=== PATIENT | female | born 1995 | race Caucasian/White ===

== ENCOUNTER → 2022-06-21 | Outpatient (CLI) | payer OTHER ==
[2022-06-21 17:43] LABS: HEMATOCRIT 37.2 % (36.0-47.0); HEMOGLOBIN 12.7 g/dl (12.0-15.5); MEAN CORPUSCULAR HEMOGLOBIN 31.4 pg (27.0-33.0); MEAN CORPUSCULAR HGB CONC 34.1 g/dl (32.0-36.5); MEAN CORPUSCULAR VOLUME 91.9 fl (80.0-96.0); PLATELET COUNT, AUTOMATED 237 10^3/uL (150-450); RED BLOOD COUNT 4.05 10^6/uL (4.00-5.40); WHITE BLOOD COUNT 10.4 10^3/uL (4.0-10.0)
[2022-06-21 20:04] LABS: HEPATITIS B SURFACE ANTIGEN NEGATIVE (NEGATIVE); HEPATITIS C VIRUS ABY INDEX < 0.0 INDEX (<0.8); HIV 1&2 SCREEN CENTAUR NEGATIVE (NEGATIVE)
== END ==
LOC: M PLALAB 15:37
PROVIDERS: ATTEND Advanced Practice Midwife
DX: Z34.01 Encounter for supervision of normal first pregnancy, first trimester (principal)

== ENCOUNTER → 2022-07-26 | Outpatient (CLI) | payer MEDICARE | LOC: M WHC 09:59 | PROVIDERS: ATTEND Advanced Practice Midwife | DX: Z34.02 Encounter for supervision of normal first pregnancy, second trimester (principal); Z3A.00 Weeks of gestation of pregnancy not specified; Z53.9 Procedure and treatment not carried out, unspecified reason ==

== ENCOUNTER → 2022-07-26 | Outpatient (CLI) | payer OTHER ==
[2022-07-26 16:57] LABS: GC DNA AMPLIFICATION NEGATIVE (NEGATIVE)
== END ==
LOC: M PLALAB 10:44
PROVIDERS: ATTEND Advanced Practice Midwife
DX: Z36.9 Encounter for antenatal screening, unspecified (principal)

== ENCOUNTER → 2022-08-30 | Outpatient (REF) | payer MEDICARE | LOC: M PLALAB 15:59 | PROVIDERS: ATTEND Advanced Practice Midwife | DX: Z34.02 Encounter for supervision of normal first pregnancy, second trimester (principal) ==

== ENCOUNTER → 2022-09-14 | Outpatient (CLI) | payer OTHER | LOC: M WHC 14:01 | PROVIDERS: ATTEND Advanced Practice Midwife | DX: Z34.02 Encounter for supervision of normal first pregnancy, second trimester (principal); Z3A.23 23 weeks gestation of pregnancy ==

== ENCOUNTER → 2022-09-28 | Outpatient (REF) | payer MEDICARE | LOC: M PLALAB 10:30 | PROVIDERS: ATTEND Advanced Practice Midwife | DX: Z34.02 Encounter for supervision of normal first pregnancy, second trimester (principal) ==

== ENCOUNTER → 2022-10-25 | Outpatient (CLI) | payer OTHER ==
[2022-10-25 14:21] LABS: HEMATOCRIT 35.3 % (36.0-47.0); HEMOGLOBIN 11.9 g/dl (12.0-15.5); MEAN CORPUSCULAR HEMOGLOBIN 32.2 pg (27.0-33.0); MEAN CORPUSCULAR HGB CONC 33.7 g/dl (32.0-36.5); MEAN CORPUSCULAR VOLUME 95.7 fl (80.0-96.0); PLATELET COUNT, AUTOMATED 255 10^3/uL (150-450); RED BLOOD COUNT 3.69 10^6/uL (4.00-5.40); WHITE BLOOD COUNT 9.1 10^3/uL (4.0-10.0)
[2022-10-25 15:46] LABS: GC DNA AMPLIFICATION NEGATIVE (NEGATIVE)
== END ==
LOC: M PLALAB 08:37
PROVIDERS: ATTEND Advanced Practice Midwife
DX: Z34.02 Encounter for supervision of normal first pregnancy, second trimester (principal); Z3A.00 Weeks of gestation of pregnancy not specified

== ENCOUNTER → 2022-11-14 | Outpatient (CLI) | payer OTHER | LOC: M WHC 06:57 | PROVIDERS: ATTEND Advanced Practice Midwife | DX: O26.843 Uterine size-date discrepancy, third trimester (principal); O41.03X0 Oligohydramnios, third trimester, not applicable or unspecified; Z3A.31 31 weeks gestation of pregnancy ==

== ENCOUNTER → 2022-11-30 | Outpatient (CLI) | payer OTHER | LOC: M WHC 09:47 | PROVIDERS: ATTEND Advanced Practice Midwife | DX: O41.03X0 Oligohydramnios, third trimester, not applicable or unspecified (principal); Z3A.00 Weeks of gestation of pregnancy not specified ==

== ENCOUNTER → 2022-12-05 | Outpatient (REF) | payer MEDICARE, OTHER ==
[2022-12-05 18:24] LABS: CREATININE,RANDOM URINE 26.4 MG/DL
[2022-12-05 18:26] LABS: TOTAL PROTEIN,RANDOM URINE < 6.0 MG/DL (0.0-14.0)
== END ==
LOC: M PLALAB 12:25
PROVIDERS: ATTEND Advanced Practice Midwife
DX: O16.3 Unspecified maternal hypertension, third trimester (principal); O41.03X0 Oligohydramnios, third trimester, not applicable or unspecified; Z3A.00 Weeks of gestation of pregnancy not specified

== ENCOUNTER → 2022-12-05 | Outpatient (CLI) | payer MEDICARE, OTHER ==
[2022-12-05 15:56] LABS: HEMATOCRIT 37.8 % (36.0-47.0); HEMOGLOBIN 12.9 g/dl (12.0-15.5); MEAN CORPUSCULAR HGB CONC 34.1 g/dl (32.0-36.5); MEAN CORPUSCULAR VOLUME 93.8 fl (80.0-96.0); PLATELET COUNT, AUTOMATED 301 10^3/uL (150-450); RED BLOOD COUNT 4.03 10^6/uL (4.00-5.40); WHITE BLOOD COUNT 10.4 10^3/uL (4.0-10.0)
[2022-12-05 16:21] LABS: URIC ACID 4.7 MG/DL (3.1-7.8)
[2022-12-05 16:23] LABS: LDH LACTATE DEHYDROGENASE 149 U/L (120-246)
[2022-12-05 16:24] LABS: ALT/SGPT 22 U/L (7.0-40); AST/SGOT 18 U/L (<34); BILIRUBIN,TOTAL 0.3 MG/DL (0.3-1.2); CREATININE FOR GFR 0.56 MG/DL (0.55-1.30); GLOMERULAR FILTRATION RATE > 60.0 (>60)
== END ==
LOC: M PLALAB 13:06
PROVIDERS: ATTEND Advanced Practice Midwife
DX: O16.3 Unspecified maternal hypertension, third trimester (principal); Z3A.00 Weeks of gestation of pregnancy not specified

== ENCOUNTER → 2022-12-05 | Outpatient (CLI) | payer OTHER | LOC: M WHC 12:03 | PROVIDERS: ATTEND Advanced Practice Midwife | DX: O41.03X0 Oligohydramnios, third trimester, not applicable or unspecified (principal); Z3A.34 34 weeks gestation of pregnancy ==

== ENCOUNTER 2022-12-13 15:46 | Inpatient (IN) | payer OTHER ==
[~2022-12-13] VITALS: Ht 172.7 cm; Wt 80.6 kg
[2022-12-13] MEDS ORDERED: VALT500T PO (16:20)
[2022-12-13] MEDS ORDERED: PRENTAB9 PO (16:20)
[2022-12-13 16:22] VITALS: BP 140/81
[2022-12-13] MEDS ORDERED: HOME MED LIST COMPLETE! XX SCH (16:25)
[2022-12-13] MEDS ORDERED: BETAMETHASONE SOLUSPAN 6MG/ML 5ML VIAL IM ONE (17:25)
[2022-12-13 20:34] LABS: HEMATOCRIT 38.8 % (36.0-47.0); HEMOGLOBIN 13.5 g/dl (12.0-15.5); MEAN CORPUSCULAR HEMOGLOBIN 32.3 pg (27.0-33.0); MEAN CORPUSCULAR HGB CONC 34.8 g/dl (32.0-36.5); MEAN CORPUSCULAR VOLUME 92.8 fl (80.0-96.0); PLATELET COUNT, AUTOMATED 278 10^3/uL (150-450); RED BLOOD COUNT 4.18 10^6/uL (4.00-5.40); WHITE BLOOD COUNT 13.1 10^3/uL (4.0-10.0)
[2022-12-13] MEDS ORDERED: LIDOCAINE 1% MDV 20ML VIAL INFIL PRN (20:40)
[2022-12-13] MEDS ORDERED: OXYTOCIN DRIP 30 UNITS in IV 1 EA IV PRN (20:40)
[2022-12-14] VITALS (11 sets, daily range): BP systolic 107–161; BP diastolic 57–86
[2022-12-14] MEDS ORDERED: BETAMETHASONE SOLUSPAN 6MG/ML 5ML VIAL IM ONE (06:30)
[2022-12-14] MEDS ORDERED: LACTATED RINGER'S 1000 ML IV STA (08:07)
[2022-12-14] MEDS ORDERED: TRANEXAMIC ACID INJection 1,000 MG in NS 100 ML IV PRN (08:10)
[2022-12-14] MEDS ORDERED: BICITRA 30ML SOLN UDC PO ONE (08:10)
[2022-12-14] MEDS ORDERED: ceFAZolin SOD 2 GM in IV 1 EA IV ONE (08:10)
[2022-12-14] MEDS ORDERED: CARBOPROST TROMETHAMINE 250 MCG/ML AMP IM PRN (08:10)
[2022-12-14] MEDS: PRENATAL VITAMINS CHEWABLE TABLET PO SCH (09:00)
[2022-12-14 11:50] LABS: CORD GAS ABE V -6.1; CORD GAS O2 SAT V 66.4 %; CORD GAS PCO2 V 41.2 mmHg; CORD GAS PH V 7.303 UNITS; CORD GAS PO2 V 30.8 mmHg; CORD GAS SBC V 18.8 MMOL/L; CORD GAS TCO2 V 21.2 MMOL/L
[2022-12-14 11:53] LABS: CORD GAS ABE A -7.2; CORD GAS HCO3 A 20.7 MMOL/L; CORD GAS O2 SAT A 22.5 %; CORD GAS PCO2 A 50.2 mmHg; CORD GAS PH A 7.233 UNITS; CORD GAS PO2 A 14.9 mmHg; CORD GAS TCO2 A 22.2 MMOL/L
[2022-12-14] MEDS ORDERED: PHENYLephrine 500MCG 5ML (100MCG/ML) SYRINGE As Ordered ONE (12:18)
[2022-12-14] MEDS ORDERED: ESMOLOL INJ 100MG/10ML VIAL As Ordered ONE (12:18)
[2022-12-14] MEDS ORDERED: MIDAZOLAM INJ 2MG/2ML VIAL As Ordered ONE (12:18)
[2022-12-14] MEDS ORDERED: ONDANSETRON 4MG 2ML VIAL As Ordered ONE (12:18)
[2022-12-14] MEDS ORDERED: MORPHINE PRES-FREE INJ 10 MG/10 ML VIAL As Ordered ONE (12:18)
[2022-12-14] MEDS ORDERED: METOCLOPRAMIDE INJ 10MG/2ML VIAL As Ordered ONE (12:18)
[2022-12-14] MEDS ORDERED: OXYTOCIN INJ 10UNITS/ML 1ML VIAL As Ordered ONE (12:18)
[2022-12-14] MEDS ORDERED: ACETAMINOPHEN 1000MG 100ML IV BAG As Ordered ONE (12:18)
[2022-12-14] MEDS ORDERED: SIMETHICONE 80MG CHEW TAB PO PRN (12:40)
[2022-12-14] MEDS ORDERED: DOCUSATE SODIUM 100MG CAPSULE PO PRN (12:40)
[2022-12-14] MEDS ORDERED: METOCLOPRAMIDE INJ 10MG/2ML VIAL IV PRN (12:40)
[2022-12-14] MEDS ORDERED: RHOGAM 300MCG (1500IU) INJ IM SCH (12:40)
[2022-12-14] MEDS ORDERED: ONDANSETRON 4MG 2ML VIAL IV PRN ×2 (12:40→13:10)
[2022-12-14] MEDS ORDERED: OXYTOCIN DRIP 30 UNITS in IV 1 EA IV SCH (12:40)
[2022-12-14] MEDS: LR 1,000 ML IV SCH ×2 (12:40→23:22)
[2022-12-14] MEDS ORDERED: oxyCODONE 5MG TAB PO PRN ×2 (12:40)
[2022-12-14] MEDS ORDERED: ACETAMINOPHEN 500 MG TAB PO SCH (13:00)
[2022-12-14] MEDS ORDERED: KETOROLAC 30 MG/ML 1ML VIAL IV SCH (13:00)
[2022-12-14] MEDS ORDERED: fentaNYL 100 MCG/2 ML INJECTION IV PRN (13:10)
[2022-12-14] MEDS: ACETAMINOPHEN 500 MG TAB PO SCH (17:58)
[2022-12-14] MEDS: KETOROLAC 30 MG/ML 1ML VIAL IV SCH (17:59)
[2022-12-15] MEDS: ACETAMINOPHEN 500 MG TAB PO SCH ×4 (00:01→19:28)
[2022-12-15 02:08] VITALS: BP_SYST 107; BP_SYST 98; BP_DIAS 52; BP_DIAS 59
[2022-12-15 06:00] VITALS: BP 107/67
[2022-12-15] MEDS: KETOROLAC 30 MG/ML 1ML VIAL IV SCH ×2 (06:03)
[2022-12-15 07:21] LABS: HEMATOCRIT 27.9 % (36.0-47.0); MEAN CORPUSCULAR HEMOGLOBIN 33.1 pg (27.0-33.0); MEAN CORPUSCULAR HGB CONC 35.1 g/dl (32.0-36.5); MEAN CORPUSCULAR VOLUME 94.3 fl (80.0-96.0); PLATELET COUNT, AUTOMATED 234 10^3/uL (150-450); RED BLOOD COUNT 2.96 10^6/uL (4.00-5.40); WHITE BLOOD COUNT 20.1 10^3/uL (4.0-10.0)
[2022-12-15 07:49] LABS: HEMOGLOBIN 9.8 g/dl (12.0-15.5)
[2022-12-15] MEDS: PRENATAL VITAMINS CHEWABLE TABLET PO SCH (09:03)
[2022-12-15 10:00] VITALS: BP 129/69
[2022-12-15 14:00] VITALS: BP 126/72
[2022-12-15] MEDS: IBUPROFEN 600MG TAB PO SCH ×2 (15:52→21:01)
[2022-12-15 18:00] VITALS: BP 155/79
[2022-12-15 19:30] VITALS: BP 112/60
[2022-12-16] MEDS: ACETAMINOPHEN 500 MG TAB PO SCH ×4 (00:39→18:10)
[2022-12-16 00:45] VITALS: BP 113/63
[2022-12-16 02:00] VITALS: BP 111/64
[2022-12-16] MEDS: IBUPROFEN 600MG TAB PO SCH ×3 (02:00→14:39)
[2022-12-16 06:00] VITALS: BP 110/66
[2022-12-16] MEDS: PRENATAL VITAMINS CHEWABLE TABLET PO SCH (08:21)
[2022-12-16] MEDS ORDERED: MEASLES,MUMPS,RUBELLA VACCINE INJ (MMR-II) SC.IMMUN ONE (09:00)
[2022-12-16 10:00] VITALS: BP 120/74
[2022-12-16] MEDS ORDERED: COLA100C5 PO (10:58)
[2022-12-16] MEDS ORDERED: IBUP-1022 PO (10:58)
[2022-12-16] MEDS ORDERED: ACET-683 PO (10:58)
[2022-12-16] MEDS ORDERED: OXYC-517 PO (10:58)
[2022-12-16 14:40] VITALS: BP 120/73
== END 2022-12-16 18:15 | disposition home or self-care (01) | DRG 540 ==
LOC: M LDO 15:46 → M LDI 19:59 → M OBS 12-14 14:38
PROVIDERS: ADMIT Specialist; ATTEND Specialist
PROC: 10D00Z1 Extraction of Products of Conception, Low, Open Approach (ICD-10-PCS; principal; 2022-12-14 11:15)
DX: O41.03X0 Oligohydramnios, third trimester, not applicable or unspecified (principal); O32.1XX0 Maternal care for breech presentation, not applicable or unspecified; Z37.0 Single live birth; Z3A.36 36 weeks gestation of pregnancy

== ENCOUNTER → 2022-12-13 | Outpatient (CLI) | payer OTHER ==
[~2022-12-13] MED LIST: ACET-683 PO; COLA100C5 PO; IBUP-1022 PO; OXYC-517 PO; PRENTAB9 PO; VALT500T PO
== END ==
LOC: M WHC 14:31
PROVIDERS: ATTEND Advanced Practice Midwife
DX: O41.03X0 Oligohydramnios, third trimester, not applicable or unspecified (principal); Z3A.36 36 weeks gestation of pregnancy

== ENCOUNTER → 2022-12-28 | Outpatient (CLI) | payer MEDICAID, OTHER | LOC: M PLALAB 09:18 | PROVIDERS: ATTEND Obstetrics & Gynecology | DX: O41.03X0 Oligohydramnios, third trimester, not applicable or unspecified (principal) ==

== ENCOUNTER → 2025-08-16 | Outpatient (REF) | payer MEDICAID, OTHER ==
[~2025-08-16] MED LIST changes: -IBUP-1022 PO; +IBUP600T42 PO
== END ==
LOC: M PLALAB 14:47
PROVIDERS: ATTEND Advanced Practice Midwife
DX: Z53.9 Procedure and treatment not carried out, unspecified reason (principal)